=== PATIENT | female | born 1990 | race African-American/Black ===

== ENCOUNTER 2018-07-28 12:55 | Emergency (ER) | payer OTHER ==
[~2018-07-28] VITALS: Ht 149.9 cm; Wt 59.1 kg
[~2018-07-28 12:55] MED LIST: FERROUS SULFAT325 MG PO; PRENATAL COMPLE1 TAB PO
[2018-07-28 13:29] VITALS: Ht 149.9 cm; Wt 59.1 kg
[2018-07-28] MEDS ORDERED: ZPAK PO (18:25)
[2018-07-28] MEDS ORDERED: MEDROL DOSE PACK4 MG PO (18:25)
[2018-07-29 01:18] VITALS: BP 113/35
== END 2018-07-28 18:55 | disposition home or self-care (01) ==
LOC: D.ER 12:55
DX: H66.91 Otitis media, unspecified, right ear (principal); R09.89 Other specified symptoms and signs involving the circulatory and respiratory systems; J02.9 Acute pharyngitis, unspecified

== ENCOUNTER 2019-07-20 16:37 | Emergency (ER) | payer OTHER ==
[~2019-07-20] VITALS: Ht 149.9 cm; Wt 65.1 kg
[~2019-07-20 16:37] MED LIST changes: +MEDROL DOSE PACK4 MG PO; +ZPAK PO
[2019-07-20 17:06] VITALS: Ht 149.9 cm; Wt 65.1 kg
[2019-07-20 17:33] LABS: BASOPHILS 0.1 % (0-2); EOSINOPHILS 2.5 % (0-7); HEMATOCRIT 35.1 % (36.0-48.0); HEMOGLOBIN 12.1 g/dL (12-16); IMMATURE GRANULOCYTES 0.1 % (0-5); MCH 26.8 pg (26.0-34.0); MCHC 34.5 g/dL (31.0-37.0); MCV 77.7 fL (80.0-100.0); MEAN PLATELET VOLUME 11.4 fL (7.4-10.4); MONOCYTES 5.8 % (2-11); NEUTROPHILS 70.5 % (40-80); PLATELET COUNT 180 10x3/uL (130-400); RBC 4.52 10x6/uL (4.00-5.40); RDW 13.4 % (11.5-14.5); WBC 7.7 10x3/uL (4.8-10.8)
[2019-07-20 17:47] LABS: ALBUMIN 3.2 g/dL (3.4-5.0); ALKALINE PHOSPHATASE 52 U/L (46-116); ALT (SGPT) 9 U/L (10-68); BILIRUBIN - TOTAL 0.35 mg/dL (0.2-1.3); CALC OSMOLALITY 274 mosm/kg (275-300); CALCIUM 9.1 mg/dL (8.5-10.1); CARBON DIOXIDE 23.3 mmol/L (21.0-32.0); CHLORIDE - SERUM 105 mmol/L (98-107); CREATININE - SERUM 0.7 mg/dL (0.6-1.3); GLUCOSE 84 mg/dL (74-106); POTASSIUM - SERUM 3.5 mmol/L (3.5-5.1); PROTEIN - SERUM 7.5 g/dL (6.4-8.2); SODIUM 139 mmol/L (136-145); UREA NITROGEN 6 mg/dL (7-18); eGFR NON AFRICAN AMERICAN > 90 mL/min (90-120)
[2019-07-20 17:51] LABS: AMYLASE - SERUM 56 U/L (25-115); LIPASE 127 U/L (73-393); TROPONIN-I < 0.017 ng/mL (0.000-0.060)
[2019-07-20 19:34] LABS: APPEARANCE CLEAR (CLEAR); COLOR YELLOW (YELLOW); NITRITE NEGATIVE (NEGATIVE); PROTEIN TRACE mg/dL (NEGATIVE)
[2019-07-20 19:35] LABS: BILIRUBIN NEGATIVE (NEGATIVE); GLUCOSE NEGATIVE (NEGATIVE); KETONE NEGATIVE (NEGATIVE); UROBILINOGEN NORMAL (NORMAL)
[2019-07-20 21:20] VITALS: BP 131/83
== END 2019-07-20 21:17 | disposition home or self-care (01) ==
LOC: D.ER 16:37
PROVIDERS: Family Medicine
DX: R55 Syncope and collapse (principal); I95.9 Hypotension, unspecified

== ENCOUNTER → 2019-09-27 06:11 | Outpatient (CLI) | payer OTHER ==
[2019-07-20 17:06] VITALS: BMI 28.9
--- NOTE | 2019-09-27 07:37 | NUR ---
DR DAVIS NOTIFIED AND REVIEWED PATIENT'S BEHAVIOR AND ASSESSMENT RESULTS. PT IS A LOW RISK PER DR DAVIS. DR DAVIS STATED TO GIVE RESOURCES TO PT AT TIME OF DISCHARGE. NO FURTHER ORDERS AT THIS TIME. RESOURCES REVIEWED WITH PT AND SHE VERBALIZES UNDERSTANDING.
== END | disposition home or self-care (01) ==
LOC: D.LDO 06:11
PROVIDERS: ATTEND Obstetrics & Gynecology
DX: O26.899 Other specified pregnancy related conditions, unspecified trimester (principal); R10.9 Unspecified abdominal pain; Z3A.19 19 weeks gestation of pregnancy